=== PATIENT | male | born 1980 | race Hispanic/Latino ===

== ENCOUNTER → 2025-05-05 | Outpatient (CLI) | payer OTHER ==
[~2025-05-05] MED LIST: IOHEXOL 350 MG/ML 100ML INFUS..BTL IV ONE
--- NOTE | 2025-05-05 22:10 | HMCIMG ---
EXAM: ABDOMEN AND PELVIS COMPUTED TOMOGRAPHY WITH INTRAVENOUS CONTRAST Technique: Multidetector computed tomography of the abdomen and pelvis was performed after intravenous administration of iodinated contrast from the diaphragms through the inguinal region. Axial images with coronal and sagittal reformations were obtained. A 7-minute renal delayed phase was included. Dose optimization followed ???as low as reasonably achievable??? principles, including automatic exposure control and size-based tube current and tube voltage modulation with iterative reconstruction. Technical limitations: None apparent. Clinical Information: Lower abdominal pain, unspecified. Comparison: None. Findings: Lung bases: No pleural effusion, lobar collapse, or consolidation is identified in the visualized lung bases. Liver: Liver size and contours are normal. Mild hepatic steatosis is present. No focal enhancing lesion or parenchymal calcification is identified. No intrahepatic or extrahepatic biliary ductal dilatation. The shayla hepatis appears normal. Gallbladder and biliary tree: Status post cholecystectomy. Pancreas: Normal size and contour without ductal dilatation, peripancreatic inflammatory change, or fluid collection. Spleen: Normal size and homogeneous enhancement without focal lesion. Adrenals: Normal morphology without nodule. Kidneys and ureters: Kidneys are normal in size, position, and enhancement without hydronephrosis, nephrolithiasis, or enhancing renal mass. A simple cyst measuring 8 millimeters is present in the mid pole of the left kidney (Bosniak category I). Visualized ureters are normal in caliber on delayed images. Urinary bladder: Normal contour and wall thickness without intraluminal filling defect on this contrast-enhanced study with delayed phase. Stomach and duodenum: Stomach is distended without focal wall thickening. The gastroesophageal junction and pylorus appear unremarkable. Small bowel: Normal caliber without obstruction. No focal mural thickening is identified. Colon and appendix: Sigmoid colon diverticulosis is present without pericolonic inflammatory change to suggest diverticulitis. The appendix is visualized and normal in caliber without periappendiceal stranding. Peritoneum and mesentery: No free intraperitoneal air, free fluid, or mesenteric edema. Lymph nodes: No pathologic abdominal or pelvic lymphadenopathy. Retroperitoneum and vasculature: The abdominal aorta and inferior vena cava are normal in course and caliber. Pelvic organs: Prostate appears normal for expected anatomy and age. Abdominal wall and soft tissues: Tiny fat-containing left inguinal hernia without bowel involvement. Osseous structures: No acute osseous abnormality is identified. Impression: * No acute abdominopelvic inflammatory process. No appendicitis, bowel obstruction, hydronephrosis, or nephrolithiasis. * Mild hepatic steatosis. * Status post cholecystectomy. * Simple left renal cyst measuring 8 millimeters (Bosniak category I). * Sigmoid colon diverticulosis without diverticulitis. * Tiny fat-containing left inguinal hernia without imaging signs of incarceration. /[place]
== END | disposition home or self-care (01) ==
LOC: RAH 10:51
PROVIDERS: ATTEND Internal Medicine Gastroenterology
DX: K76.0 Fatty (change of) liver, not elsewhere classified (principal); N28.1 Cyst of kidney, acquired; K57.30 Diverticulosis of large intestine without perforation or abscess without bleeding; K40.90 Unilateral inguinal hernia, without obstruction or gangrene, not specified as recurrent; R10.30 Lower abdominal pain, unspecified; Z90.49 Acquired absence of other specified parts of digestive tract
CPT/HCPCS: 74177; Q9967